=== PATIENT | female | born 1965 | race Caucasian/White ===

== ENCOUNTER 2018-06-14 08:00 | Outpatient (RCR) | payer BC, SELFPAY ==
--- NOTE | 2018-02-14 08:15 | PTIDS_ITS ---
DATE: 02/14/18 REFERRING PROVIDER: Harmony Quiros NP DIAGNOSIS: neck pain Patient did not return for a follow up appointment(s). Patient called to cancel remaining appointment(s). Reason: ___x__ Return to physician recommended. Patient had achieved an improvement in condition up to their prior level of function. Patient was instructed in a customized home exercise program to continue independently at home. The patient was given the option to call and schedule an appointment any time within a 3-week period if they experience a return of symptoms. Patient did not schedule follow up within this time frame. COMMENTS: Patient was seeking out orthopaedic consultation at time of last visit 11/2017 ___x__ Discharge from PT at this time. Medicare: Unable to assign G-Codes due to the lack of a formal follow up visit. Patient did not schedule further visits after their last attended appointment and therefore a final assessment could not be performed.
--- NOTE | 2018-06-11 08:01 | IE_ITS ---
Date: June 11, 2018 Referring: Rena Soliman PA-C M.D. Diagnosis: medial meniscus tear left knee S/p partial medial menisectomy, lateral release, lysis of adhesions, tri compartmental chondroplasty and lose body removal P.T. Diagnosis: same SUBJECTIVE: History of Present Illness: Patient presents today with complaints of stiffness and weakness in her left knee. She is 3 weeks post op from surgery, as indicated above. She reports many years of knee pain, beginning in 1989 following a softball incident where she suffered a severe bone bruise. She ended up having a lose body removed about a year later, and had intermittent knee pain til this past spring when she took a fall, and had significant pain and edema as a result. She had a MRI, which she reports revealed Grade 4 osteoarthritis. She subsequently underwent arthroscopic surgery on May 21. Since the surgery her pain has been very well managed. She, in fact, started a walking program shortly after surgery, walking 2 to 3 miles a day. After that she got significantly swollen and stiff, although still had no pain to speak of. She was seen at [facility] where it was recommended that she discontinue her walking program for the time being. She was fitted with a patella stabilization brace. She reports a generalized feeling of weakness, and this is her primary complaint. The brace does seem to help with that, and she reports feeling more stable with use. Pain Rating: Currently 0/10 Prior Level of Function: Active and independent 53 year old female. Current Level of Function: Unable to perform her normal walking program. Unable to reciprocally manage stairs. She also reports difficulty walking down hill due to a generalized feeling of instability. She is unable to squat to the floor, and struggles with donning and doffing her shoes. Previous Treatment: Previous surgery as indicated above. 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 She is also an avid walker, and enjoys biking, which she is very anxious to resume. She lives with her , and has two adult children. Comorbidities: Thyroid dysfunction. Falls in the last year: ____ No __x__Yes - How many? __1__ - (if over 2, balance SM needs to be completed) Reported hospitalizations in the last year - __x__ No ____ Yes - Dates of admission/reason: Medications: Levothyroxine Quality of Life: __x__ Good Standardized Measures: LEFS score: __75%__ OBJECTIVE: Posture: The patient exhibits good upright posture with full terminal knee extension. Gait: Positive for antalgia with decreased stance time on the left LE. She is independent with bed mobility and transfers, although frequently rests the knee in slight flexion in the supine position. She struggles with independently donning her shoes, requiring significant positional modifications and increased time to perform. Edema: The patient has a (+) joint effusion left knee. Patella mobility: Normal, although with significant apprehension with mobilization through all planes. She also has significant hypersensitivity noted at her scope sites and diffusely through the anterior knee. ROM: PROM allows 0 to 130 of knee flexion. Actively, she is able to demonstrate only about 110 of flexion, reporting a feeling of stiffness and weakness. Strength: The patient has visible quad atrophy noted on the left LE. She is able to perform a SLR without an extension lag, although struggles to hold this for more than 5 seconds with significant muscle fasciculation and facial grimacing. Manual muscle testing of the quadriceps shows strength of 4-/5 on the left compared to 5/5 on the right. Hip flexion is 4-/5 left; 5/5 right. Hamstrings 3+/5 left; 4/5 right. Gross hip abduction 3+5 left; not assessed right. Treatment: Today's session consisted of an evaluation followed by a long discussion regarding appropriate treatment planning and goals. The patient was instructed in an extensive therapeutic exercise program. She required cues and tactile feedback for appropriate completion, particularly during closed chain strengthening. She was instructed in stationary biking, which she performed at 60 RPM x5 minutes with ability to tolerate full revolutions. She then received Kinesio taping to the left knee for improved quad recruitment and edema management. IE: [id number] x1 Therapeutic procedures (84047r7). Direct treatment time: 65 minutes Total treatment time: 65 minutes ASSESSMENT: Patient is a -year-old 53 female, referred for PT services with the diagnosis of 3 weeks S/p left partial menisectomy, lateral release, lysis of adhesions, tri compartmental chondroplasty and lose body removal. Patient presents with clinical signs and symptoms consistent with this diagnosis with known underlying osteoarthritis of the left knee. She currently demonstrates the following impairment level findings: 1) joint effusion 2) hypersensitivity throughout the left knee 3) decreased left LE strength 4) gait impairments 5) muscle atrophy Impairments are contributing to the following functional limitations: 1) decreased tolerance to community distance ambulation with patient unable to complete her normal walking program 2) unable to reciprocally negotiate stairs 3) unable to walk down hill without UE support 4) unable to squat down for household activities 5) stiffness with prolonged positioning, particularly long car rides Patient is assessed as: __x__ Moderate 40211 complexity, based on the following: History: (list): A 53 year old female with significant edema and weakness. She is 3 weeks S/p arthroscopic surgery of the left knee with known underlying osteoarthritis Examination: (list): Functional limitations as indicated above. Presentation: Evolving due to post operative status Decision-Making: Moderate complexity STG: __6__ weeks. 1) Patient able to ambulate without antalgia. 2) Patient able to tolerate the reintroduction of the stationary bike for regular home completion without increasing pain or edema 3) Resolution of joint effusion LTG: __12__ weeks. 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 4) Reciprocal stair management PLAN: Patient to be seen 2x per week, initially, tapering visits over the course of the next 12 weeks. Treatment will primarily consist of a strengthening based program with both open and closed chain strengthening activities. Had her initiate stationary biking today for low impact ROM activities. She tolerated this well. Will incorporate proprioceptive retraining and balance activities as well as extensive eccentric loading of the quadriceps and generalized hip strengthening to reduce biomechanical stress to the patellofemoral joint. Will continue with Kinesio taping techniques, and consider use of IASTM for neuromodulation as well. Thank you for this referral. Please do not hesitate to contact me with any questions or concerns regarding this patient's plan of care.
--- NOTE | 2018-06-14 10:05 | PTTR_ITS ---
DATE: 06/14/18 SUBJECTIVE: Rachna states that her knee is feeling a little better. She feels the tape helped, and her exercises have been going well. Compliant with HEP: x Yes No OBJECTIVE: . Therapeutic procedures ([id number]). * x HEP review: Added bridges, 10 reps, 10 second holds * x See flow sheet: * x Provided skilled instruction in proper exercise performance: Progressed SLR to include 10 second hold. Also progressed to 4 step ups with bilat UE support to rails, which she tolerated well. * x Provided skilled manual cues to facilitate proper muscle recruitment and/ or movement pattern: * x Other: began treatment with IASTM to the quad for upregulation, followed by Rock Taping to the quad for proprioceptive feedback and edema management. She then performed various quad loading activities as noted in flowsheet. Direct treatment time: 30 minutes Total treatment time: 40 minutes, with 10 minutes of Nu Step biking
== END 2018-06-15 23:59 | disposition home or self-care (01) ==
LOC: PT 08:00
PROVIDERS: PCP Internal Medicine; Referring Provider Physician Assistant; Visit Provider Physician Assistant
DX: S83.242D Other tear of medial meniscus, current injury, left knee, subsequent encounter
CPT/HCPCS: 97110; 97162

== ENCOUNTER 2019-02-01 10:56 | Outpatient (REF) | payer BC, SELFPAY ==
[2019-02-01 12:33] LABS: TSH (W/Ref FT4) 1.37 uIU/mL (0.358-3.74)
[2019-02-04 10:37] LABS: Hepatitis C Ab w Rflx HCV PCR Negative (NEGAT)
== END 2019-02-01 11:16 ==
LOC: NCHCN 10:56
PROVIDERS: PCP Internal Medicine; Visit Provider Nurse Practitioner Family
DX: E04.9 Nontoxic goiter, unspecified (principal); E66.9 Obesity, unspecified; M15.1 Heberden's nodes (with arthropathy); Z00.00 Encounter for general adult medical examination without abnormal findings; Z11.59 Encounter for screening for other viral diseases
CPT/HCPCS: 86803; 84443

== ENCOUNTER 2019-04-24 00:16 | Outpatient (CLI) | payer BC, SELFPAY ==
--- NOTE | 2019-04-24 09:59 | DI.MAMMO_ITS ---
SYMPTOM/DIAGNOSIS: SCREENING, Z12.39, PREVENTIVE HEALTH CARE, Z00.00 MAMMOGRAMS: Mammograms were interpreted according to the usual protocol including computer analysis with CAD system, tomosynthesis and C view imaging. The breasts are of moderate density with fairly symmetrical fibroglandular tissue. No dominant mass or clumped microcalcification is identified in either breast. Current examination is compared with previous examinations including 11/2016 and there has been no gross interval change in appearance in comparison with the previous studies. CONCLUSION: No specific evidence of malignancy at this time. Routine screening examinations are suggested at yearly intervals due to the family history of breast carcinoma. Category 1. Breast density, Category B. MQSA ASSESSMENT OF FINDINGS: Negative. Category 1. Patient will receive a letter notifying them of these results. BI-RADS category B. There are scattered areas of fibroglandular density.
== END 2019-04-24 00:36 ==
PROVIDERS: PCP Internal Medicine; Visit Provider Nurse Practitioner Family
DX: Z00.00 Encounter for general adult medical examination without abnormal findings (principal); Z12.31 Encounter for screening mammogram for malignant neoplasm of breast; Z80.3 Family history of malignant neoplasm of breast
CPT/HCPCS: 77063; 77067

== ENCOUNTER 2019-11-11 12:26 | Outpatient (REF) | payer BC, SELFPAY ==
[2019-11-11 22:03] LABS: Calculated LDL 129 mg/dL (<100); Cholesterol 229 mg/dL (<200); HDL Cholesterol 90 mg/dL (40-60); TSH (W/Ref FT4) 0.83 uIU/mL (0.36-3.74); Triglyceride 50 mg/dL (<150)
[2019-11-11 22:12] LABS: Hemoglobin A1C 5.3 % (3.8-5.6)
== END 2019-11-11 12:46 ==
LOC: NCHCN 12:26
PROVIDERS: PCP Internal Medicine; Visit Provider Nurse Practitioner Family
DX: Z00.00 Encounter for general adult medical examination without abnormal findings (principal); F41.8 Other specified anxiety disorders; E04.9 Nontoxic goiter, unspecified; N95.1 Menopausal and female climacteric states; M54.2 Cervicalgia; M15.1 Heberden's nodes (with arthropathy); E66.9 Obesity, unspecified
CPT/HCPCS: 80061; 83036; 84443

== ENCOUNTER 2020-09-14 01:31 | Outpatient (CLI) | payer BC, SELFPAY ==
--- NOTE | 2020-09-14 | DI.US_ITS ---
EXAM: US CAROTID CLINICAL HISTORY: CAROTID ATHEROSCLEROSIS,I70.8,INCIDENTAL FINDING ON DENTAL XRAYS TECHNIQUE: Ultrasound performed using standard protocol. COMPARISON: No exams were available for comparison FINDINGS: Duplex evaluation of the carotid circulation was performed according to the usual protocol there is m inimal atheromatous plaque in the carotid bulb on the right, no other atheromatous plaque seen period . Flow velocities are within normal limits in common, internal, and external carotid arteries bilate rally. There is bilateral antegrade vertebral flow. IMPRESSION: No evidence of a hemodynamically significant carotid stenosis. DATA REPOSITORY:
== END 2020-09-14 01:51 ==
PROVIDERS: PCP Internal Medicine; Visit Provider Family Medicine
DX: I70.8 Atherosclerosis of other arteries (principal)
CPT/HCPCS: 93880

== ENCOUNTER 2020-11-17 15:10 | Outpatient (REF) | payer BC, SELFPAY ==
[2020-11-17 13:31] LABS: TSH (W/Ref FT4) 1.39 uIU/mL (0.36-3.74)
== END 2020-11-17 15:11 | disposition home or self-care (01) ==
LOC: NCHCN 15:10
PROVIDERS: PCP Internal Medicine; Visit Provider Nurse Practitioner Family
DX: Z00.00 Encounter for general adult medical examination without abnormal findings (principal); E04.9 Nontoxic goiter, unspecified; E78.5 Hyperlipidemia, unspecified; E66.9 Obesity, unspecified
CPT/HCPCS: 84443

== ENCOUNTER 2021-03-08 01:10 | Outpatient (CLI) | payer BC, SELFPAY ==
--- NOTE | 2021-03-08 | DI.MAMMO_ITS ---
Exam(s) MAMMO SCREENING EXAM: MAMMO SCREENING CLINICAL HISTORY: SCREENING, Z12.31. TECHNIQUE: Bilateral full field digital CC and MLO mammographic images were obtained with 3D tomosyn thesis and utilizing computer aided detection (CAD). COMPARISON: Prior mammograms dating back to 2011, the most recent being April 2019. FINDINGS: There are no new spiculated masses nor malignant appearing microcalcification groups. Benign lymph node upper outer quadrant left breast is unchanged prior study. There is no significant architectural distortion nor skin thickening-retraction. IMPRESSION: No radiographic evidence of malignancy. BI-RADS Category 1 - Negative Breast Density - Category B - Scattered areas of fibroglandular density Breast density Category C or D implies that the patient has dense breast tissue. Dense breast tissue can make it harder to find cancer on a mammogram. Dense breast tissue is also associated with an incr eased risk of breast cancer. This information about the result of the mammogram report was provided to the patient to raise their awareness. Use this report when you speak with the patient about their risks for breast cancer, which includes their family history. At that time, you may recommend additional screening tests (Ultrasoun d or MRI) as these tests may add significant information. A negative radiographic report should not delay biopsy if a dominant or clinically suspicious mass is present. Up to ten percent of cancers are not identified on mammography. A negative report may reinforce clinical impression. Adenosis and dense breasts may obscure an underlying neoplasm. False positive reports average 6 to 10%. Patient will receive a letter notifying them of these results.
== END 2021-03-08 01:30 ==
PROVIDERS: PCP Internal Medicine; Visit Provider Nurse Practitioner Family
DX: Z12.31 Encounter for screening mammogram for malignant neoplasm of breast (principal)
CPT/HCPCS: 77063; 77067

== ENCOUNTER 2021-11-22 09:25 | Outpatient (REF) | payer BC, SELFPAY ==
--- NOTE | 2021-11-22 08:30 | PAPFT_PTH ---
PATIENT: Marce Enamorado LOC: [facility]#:[id number] AGE/SX: 56/F ROOM: RE11/22/[address]: Angelita Quiros : 1965 BED: DIS: 11/22/2021 SPEC #: [id number] RECD: 11/22/21 17:51 STATUS: PAULA CLAUDIA #: [id number] PHIL: 11/22/21 08:[address]: Angelita Quiros DEPT: [facility] Cytology RECD BY: Nya Mccallum ENTERED: 11/22/21 17:52 SP TYPE: PAPFT DILLON DR: Moris Barros Tissues: 1 - CX/ENDOCX FOR PAP SMEARS Procedures: PAP THIN PREP/UVM Screening HPV DNA PROBE Comments: [id number]
[2021-11-22 16:30] LABS: Calculated LDL 145 mg/dL (<100); Cholesterol 251 mg/dL (<200); HDL Cholesterol 98 mg/dL (40-60); TSH (W/Ref FT4) 12.66 uIU/mL (0.36-3.74); Triglyceride 42 mg/dL (<150)
[2021-11-22 16:31] LABS: Hemoglobin A1C 5.2 % (<5.7)
[2021-11-22 16:56] LABS: FREE T4 0.83 ng/dL (0.76-1.46)
== END 2021-11-22 09:26 | disposition home or self-care (01) ==
LOC: NCHCN 09:25
PROVIDERS: PCP Internal Medicine; Visit Provider Nurse Practitioner Family
DX: Z12.4 Encounter for screening for malignant neoplasm of cervix (principal); Z11.51 Encounter for screening for human papillomavirus (HPV); Z01.419 Encounter for gynecological examination (general) (routine) without abnormal findings; E04.9 Nontoxic goiter, unspecified; E78.5 Hyperlipidemia, unspecified; E66.9 Obesity, unspecified; I70.8 Atherosclerosis of other arteries; Z00.00 Encounter for general adult medical examination without abnormal findings
CPT/HCPCS: 80061; 88142; 83036; 84439; 84443; 87624

== ENCOUNTER 2022-01-04 14:43 | Outpatient (REF) | payer BC, SELFPAY ==
[2022-01-04 15:39] LABS: TSH (W/Ref FT4) 0.46 uIU/mL (0.36-3.74)
== END 2022-01-04 14:44 | disposition home or self-care (01) ==
LOC: NCHCN 14:43
PROVIDERS: PCP Internal Medicine; Visit Provider Nurse Practitioner Family
DX: E05.90 Thyrotoxicosis, unspecified without thyrotoxic crisis or storm (principal)
CPT/HCPCS: 84443

== ENCOUNTER → 2022-03-09 03:51 | Outpatient (CLI) | payer BC, SELFPAY ==
--- NOTE | 2022-03-09 08:00 | DI.MAMMO_ITS ---
Exam(s) MAMMO SCREENING EXAM: MAMMO SCREENING CLINICAL HISTORY: SCREENING, Z12.31 TECHNIQUE: Bilateral full field digital CC and MLO mammographic images were obtained with 3D tomosyn thesis and utilizing computer aided detection (CAD). COMPARISON: Available for comparison. FINDINGS: Masses/Architectural Distortion: None seen. Microcalcifications: No suspicious pleomorphic-type are seen. Skin Thickening/Nipple Retraction: None. IMPRESSION: 1. No significant interval change with no specific features of malignancy noted. 2. Unless there is more urgent need, screening mammography is recommended, as per [employer] guidelines. BI-RADS Category 1 - Negative Breast Density - Category B - Scattered areas of fibroglandular density Breast density category C or D implies that the patient has dense breast tissue. Dense breast tissue is very common and is not abnormal but dense breast tissue can make it harder to find cancer on a ma mmogram. Also, dense breast tissue may increase their breast cancer risk. This information about the result of the mammogram report was provided to the patient to raise their awareness. Use this report when you speak with the patient about their risks for breast cancer, which includes their family hist ory. At that time, you may recommend for more screening tests (Ultrasound or MRI) as they might be us eful based on their risk. A negative radiographic report should not delay biopsy if a dominant or clinically suspicious mass is present. Up to ten percent of cancers are not identified on mammography. A negative report may reinforce clinical impression. Adenosis and dense breasts may obscure an underlying neoplasm. False positive reports average 6 to 10%. Patient will receive a letter notifying them of these results.
== END ==
PROVIDERS: PCP Internal Medicine; Visit Provider Nurse Practitioner Family
DX: Z12.31 Encounter for screening mammogram for malignant neoplasm of breast (principal)
CPT/HCPCS: 77063; 77067

== ENCOUNTER 2022-05-30 08:43 | Outpatient (REF) | payer BC, SELFPAY ==
[2022-05-30 14:58] LABS: TSH (W/Ref FT4) 5.22 uIU/mL (0.36-3.74)
[2022-05-30 15:25] LABS: FREE T4 1.02 ng/dL (0.76-1.46)
== END 2022-05-30 08:44 | disposition home or self-care (01) ==
LOC: NCHCN 08:43
PROVIDERS: PCP Internal Medicine; Visit Provider Nurse Practitioner Family
DX: E78.5 Hyperlipidemia, unspecified (principal); E66.9 Obesity, unspecified; E03.9 Hypothyroidism, unspecified; M25.562 Pain in left knee
CPT/HCPCS: 84439; 84443

== ENCOUNTER 2022-09-13 14:08 | Outpatient (REF) | payer BC, SELFPAY ==
[2022-09-13 15:08] LABS: FREE T4 1.35 ng/dL (0.76-1.46); TSH 0.34 uIU/mL (0.36-3.74)
== END 2022-09-13 14:09 | disposition home or self-care (01) ==
LOC: NCHCN 14:08
PROVIDERS: PCP Internal Medicine; Visit Provider Nurse Practitioner Family
DX: E03.9 Hypothyroidism, unspecified (principal)
CPT/HCPCS: 84439; 84443

== ENCOUNTER 2022-11-07 08:11 | Outpatient (REF) | payer BC, SELFPAY ==
[2022-11-07 16:03] LABS: TSH (W/Ref FT4) 0.35 uIU/mL (0.36-3.74)
[2022-11-07 16:20] LABS: FREE T4 1.02 ng/dL (0.76-1.46)
== END 2022-11-07 08:12 | disposition home or self-care (01) ==
LOC: NCHCN 08:11
PROVIDERS: PCP Internal Medicine; Visit Provider Nurse Practitioner Family
DX: E03.9 Hypothyroidism, unspecified (principal)
CPT/HCPCS: 84439; 84443

== ENCOUNTER 2022-11-21 01:52 | Outpatient (CLI) | payer BC, SELFPAY ==
--- NOTE | 2022-11-21 07:51 | DI.RAD_ITS ---
Exam(s) XR HIP LT COMPLETE AP PELVIS EXAM: XR HIP LT COMPLETE AP PELVIS CLINICAL HISTORY: LT HIP PAIN, M25.552. TECHNIQUE: 2D digital imaging was performed of the left hip. Two views were obtained. AP pelvis an d lateral left hip views were obtained. COMPARISON: No exams were available for comparison FINDINGS: BONES: No acute fracture is present. No bony destructive lesion is seen. JOINTS: No dislocation present. There are degenerative changes seen in the left hip with mild joint s pace narrowing, subchondral cysts and sclerosis. The right hip is well maintained. SOFT TISSUE: Normal. IMPRESSION: There are mild degenerative changes of the left hip. DATA REPOSITORY: RADIATION DOSE DELIVERED:
== END 2022-11-21 02:12 ==
LOC: DI 01:52
PROVIDERS: PCP Internal Medicine; Visit Provider Internal Medicine
DX: M25.552 Pain in left hip (principal); M16.12 Unilateral primary osteoarthritis, left hip
CPT/HCPCS: 73502

== ENCOUNTER 2022-12-20 13:16 | Outpatient (REF) | payer BC, SELFPAY ==
[2022-12-20 15:41] LABS: TSH (W/Ref FT4) 0.96 uIU/mL (0.36-3.74)
== END 2022-12-20 13:17 | disposition home or self-care (01) ==
LOC: NCHCN 13:16
PROVIDERS: PCP Internal Medicine; Visit Provider Nurse Practitioner Family
DX: E03.9 Hypothyroidism, unspecified (principal)
CPT/HCPCS: 84443

== ENCOUNTER 2023-12-21 10:33 | Outpatient (REF) | payer BC, SELFPAY ==
[2023-12-21 14:33] LABS: ALT 26 U/L (14-59); AST 17 U/L (15-37); Albumin 4.4 g/dL (3.4-5.0); Alkaline Phosphatase 74 U/L (46-116); Anion Gap 9.3 mmol/L (3-11); BUN 15 mg/dL (7-18); Bilirubin, Total 0.5 mg/dL (0.2-1.0); CO2 26.7 mmol/L (21.0-32.0); CREATININE 0.8 mg/dL (0.55-1.02); Calcium 9.7 mg/dL (8.5-10.1); Calculated LDL 150 mg/dL (<100); Chloride 107 mmol/L (98-107); Cholesterol 255 mg/dL (<200); Glucose 105 mg/dL (74-106); HDL Cholesterol 97 mg/dL (40-60); Potassium 5.1 mmol/L (3.5-5.1); Sodium 143 mmol/L (136-145); TSH (W/Ref FT4) 5.61 uIU/mL (0.36-3.74); Total Protein 7.1 g/dL (6.4-8.2); Triglyceride 44 mg/dL (<150)
== END 2023-12-21 10:34 | disposition home or self-care (01) ==
LOC: NCHCN 10:33
PROVIDERS: PCP Internal Medicine; Referring Provider Nurse Practitioner Family; Visit Provider Nurse Practitioner Family
DX: E04.9 Nontoxic goiter, unspecified (principal); Z13.1 Encounter for screening for diabetes mellitus; E78.5 Hyperlipidemia, unspecified
CPT/HCPCS: 80053; 80061; 83036; 84439; 84443

== ENCOUNTER → 2023-12-26 03:21 | Outpatient (CLI) | payer BC, SELFPAY ==
--- NOTE | 2023-12-26 | DI.MAMMO_ITS ---
Exam(s) MAMMO SCREENING EXAM: MAMMO SCREENING CLINICAL HISTORY: SCREENING MAMMO FOR BREAST CANCER Z12.31. TECHNIQUE: Bilateral full field digital CC and MLO mammographic images were obtained with 3D tomosyn thesis and utilizing computer aided detection (CAD). COMPARISON: Prior mammograms were reviewed. FINDINGS: There has been no significant change in the appearance and distribution of the fibroglandular tissue. Benign intramammary lymph node upper-outer quadrant left breast again noted, unchanged There are no new spiculated masses nor malignant appearing microcalcification groups. There is no significant architectural distortion nor skin thickening-retraction. IMPRESSION: No radiographic evidence of malignancy. BI-RADS Category 1 - Negative Breast Density - Category B - Scattered areas of fibroglandular density Breast density Category C or D implies that the patient has dense breast tissue. Dense breast tissue can make it harder to find cancer on a mammogram. Dense breast tissue is also associated with an incr eased risk of breast cancer. This information about the result of the mammogram report was provided to the patient to raise their awareness. Use this report when you speak with the patient about their risks for breast cancer, which includes their family history. At that time, you may recommend additional screening tests (Ultrasoun d or MRI) as these tests may add significant information. A negative radiographic report should not delay biopsy if a dominant or clinically suspicious mass is present. Up to ten percent of cancers are not identified on mammography. A negative report may reinforce clinical impression. Adenosis and dense breasts may obscure an underlying neoplasm. False positive reports average 6 to 10%. Patient will receive a letter notifying them of these results.
== END ==
PROVIDERS: PCP Internal Medicine; Visit Provider Nurse Practitioner Family
DX: Z12.31 Encounter for screening mammogram for malignant neoplasm of breast (principal)
CPT/HCPCS: 77063; 77067

== ENCOUNTER 2024-02-06 08:20 | Outpatient (REF) | payer BC, SELFPAY ==
[2024-02-06 15:06] LABS: TSH (W/Ref FT4) 1.59 uIU/mL (0.36-3.74)
== END 2024-02-06 08:21 | disposition home or self-care (01) ==
LOC: NCHCN 08:20
PROVIDERS: PCP Nurse Practitioner Family; Visit Provider Nurse Practitioner Family
DX: E03.9 Hypothyroidism, unspecified (principal)
CPT/HCPCS: 84443